=== PATIENT | male | born 1960 | race African-American/Black ===

== ENCOUNTER 2017-08-02 09:22 | Emergency (ER) | payer MEDICAID ==
[~2017-08-02] VITALS: Ht 182.9 cm; Wt 82.0 kg
[~2017-08-02 09:22] MED LIST: DOCU-272 PO; PANT40TA4 PO; SEVE800T8 PO; TAMS0.4C31 PO
[2017-08-02] MEDS ORDERED: FLUORESCEIN SODIUM 1MG/STRIP OP ONE (10:15)
[2017-08-02] MEDS ORDERED: TETRACAINE 0.5% OPHTH DROPS 4ML OP ONE (10:15)
[2017-08-02 14:39] VITALS: BP 149/84
== END 2017-08-02 14:40 | disposition home or self-care (01) ==
LOC: ER 09:27
DX: S05.01XA Injury of conjunctiva and corneal abrasion without foreign body, right eye, initial encounter (principal); H10.9 Unspecified conjunctivitis; I12.0 Hypertensive chronic kidney disease with stage 5 chronic kidney disease or end stage renal disease; N18.6 End stage renal disease; Z99.2 Dependence on renal dialysis; F17.210 Nicotine dependence, cigarettes, uncomplicated; Z71.6 Tobacco abuse counseling; X58.XXXA Exposure to other specified factors, initial encounter; Y93.89 Activity, other specified; Y92.018 Other place in single-family (private) house as the place of occurrence of the external cause
CPT/HCPCS: 70486; 99284; 99406; Z7610

== ENCOUNTER 2019-08-21 19:05 | Inpatient (IN) | payer MEDICAID ==
[~2019-08-21] VITALS: Ht 182.9 cm; Wt 92.2 kg
[2019-08-21 21:10] LABS: CHLORIDE 97 mEq/L (98-107)
[2019-08-21 21:13] LABS: BASOPHILS % 0.8 % (0.0-2.0); EOSINOPHILS % 2.2 % (0.0-5.0); HEMATOCRIT. 25.9 % (42.0-52.0); HEMOGLOBIN. 8.7 g/dL (14.0-18.0); LYMPHOCYTES % 8.7 % (20.0-50.0); MEAN CORPUSCULAR HEMOGLOBIN 28.9 pg (28.0-32.0); MEAN CORPUSCULAR VOLUME 85.3 fL (80.0-94.0); MEAN PLATELET VOLUME 7.7 fl (7.4-10.4); MONOCYTES % 6.7 % (2.0-8.0); NEUTROPHILS % 81.6 % (40.0-76.0); PLATELET 266 x1000/uL (130-400); RED BLOOD CELL COUNT 3.03 mill/uL (4.7-6.1)
[2019-08-21 21:15] LABS: ETHANOL BLOOD < 10 mg/dL
[2019-08-21 22:46] LABS: INR 1.2; PARTIAL THROMBOPLASTIN TIME 32.8 sec (23.4-31.0); PROTHROMBIN TIME 13.1 sec (9.6-11.0)
[2019-08-22] MEDS ORDERED: ACETAMINOPHEN 325MG TABLET PO ONE
[2019-08-22] MEDS ORDERED: ACETAMINOPHEN 325MG TABLET ONE (00:07)
[2019-08-22 04:15] VITALS: BP 196/98
[2019-08-22] MEDS: HYDROCODONE/ACETAMINOPHEN 5/325MG TABLET PO PRN ×2 (05:21→20:17)
[2019-08-22] MEDS: CLONIDINE 0.1MG TABLET PO PRN ×3 (05:22→23:03)
[2019-08-22 08:30] VITALS: BP 175/99
[2019-08-22] MEDS: SEVELAMER CARBONATE 800 MG TABLET PO SCH ×3 (08:41→18:05)
[2019-08-22] MEDS: PANTOPRAZOLE 40MG DR TABLET PO SCH (08:41)
[2019-08-22] MEDS: DOCUSATE SODIUM 100MG CAPSULE PO SCH ×2 (08:42→16:42)
[2019-08-22] MEDS: TAMSULOSIN HCL 0.4MG SR CAPSULE PO SCH (08:43)
[2019-08-22 12:30] VITALS: BP 186/97
[2019-08-22 14:33] LABS: CREATINE KINASE MB FRACTION 2.9 ng/mL (0.5-3.6)
[2019-08-22 16:00] VITALS: BP 176/78
[2019-08-22 20:00] VITALS: BP 184/81
[2019-08-22 22:12] LABS: PHOSPHORUS 8.3 mg/dL (2.5-4.9)
[2019-08-22 22:58] LABS: CREATINE KINASE MB FRACTION 2.4 ng/mL (0.5-3.6)
[2019-08-22 22:59] VITALS: BP 187/86
[2019-08-23] VITALS: BP 195/99
[2019-08-23 08:00] VITALS: BP 161/99
[2019-08-23] MEDS: SEVELAMER CARBONATE 800 MG TABLET PO SCH ×3 (08:47→18:27)
[2019-08-23] MEDS: PANTOPRAZOLE 40MG DR TABLET PO SCH (08:48)
[2019-08-23] MEDS: FOLIC ACID/VITAMIN B COMP W-C TABLET PO SCH (08:48)
[2019-08-23] MEDS: DOCUSATE SODIUM 100MG CAPSULE PO SCH ×2 (08:48→17:00)
[2019-08-23] MEDS: TAMSULOSIN HCL 0.4MG SR CAPSULE PO SCH (08:48)
[2019-08-23] MEDS: CLONIDINE 0.1MG TABLET PO PRN ×2 (08:51→16:03)
[2019-08-23] MEDS: HYDROCODONE/ACETAMINOPHEN 5/325MG TABLET PO PRN ×2 (09:10→16:03)
[2019-08-23 12:00] VITALS: BP 156/85
[2019-08-23 16:00] VITALS: BP 165/87
[2019-08-23 18:18] LABS: BASOPHILS % 0.8 % (0.0-2.0); EOSINOPHILS % 4.3 % (0.0-5.0); HEMOGLOBIN. 7.3 g/dL (14.0-18.0); LYMPHOCYTES % 8.3 % (20.0-50.0); MEAN CORPUSCULAR HEMOGLOBIN 28.6 pg (28.0-32.0); MEAN CORPUSCULAR VOLUME 85.8 fL (80.0-94.0); MEAN PLATELET VOLUME 7.2 fl (7.4-10.4); NEUTROPHILS % 78.6 % (40.0-76.0); PLATELET 209 x1000/uL (130-400); RED BLOOD CELL COUNT 2.56 mill/uL (4.7-6.1); RED CELL DISTRIBUTION WIDTH 15.8 % (11.6-14.6)
[2019-08-23 18:55] LABS: HEPATITIS B SURFACE ANTIGEN NEGATIVE
[2019-08-23 19:25] LABS: HEPATITIS A AB IGM NEGATIVE (NEGATIVE)
[2019-08-23 20:00] VITALS: BP 177/99
[2019-08-24] VITALS (8 sets, daily range): BP systolic 158–185; BP diastolic 84–105
[2019-08-24] MEDS: HYDROCODONE/ACETAMINOPHEN 5/325MG TABLET PO PRN ×3 (02:18→21:08)
[2019-08-24] MEDS: TAMSULOSIN HCL 0.4MG SR CAPSULE PO SCH (09:16)
[2019-08-24] MEDS: DOCUSATE SODIUM 100MG CAPSULE PO SCH ×2 (09:17→18:32)
[2019-08-24] MEDS: PANTOPRAZOLE 40MG DR TABLET PO SCH (09:17)
[2019-08-24] MEDS: SEVELAMER CARBONATE 800 MG TABLET PO SCH ×3 (09:17→18:32)
[2019-08-24] MEDS: FOLIC ACID/VITAMIN B COMP W-C TABLET PO SCH (09:17)
[2019-08-24] MEDS: CLONIDINE 0.1MG TABLET PO PRN ×2 (11:46→17:50)
[2019-08-24 16:49] LABS: BASOPHILS % 0.7 % (0.0-2.0); LYMPHOCYTES % 7.7 % (20.0-50.0); MEAN CORPUSCULAR HEMOGLOBIN 28.6 pg (28.0-32.0); MEAN CORPUSCULAR VOLUME 85.9 fL (80.0-94.0); MEAN PLATELET VOLUME 7.2 fl (7.4-10.4); MONOCYTES % 7.1 % (2.0-8.0); NEUTROPHILS % 80.5 % (40.0-76.0); PLATELET 183 x1000/uL (130-400); RED BLOOD CELL COUNT 2.44 mill/uL (4.7-6.1); RED CELL DISTRIBUTION WIDTH 15.3 % (11.6-14.6)
[2019-08-24 17:05] LABS: HEMATOCRIT. 20.9 % (42.0-52.0)
[2019-08-24] MEDS: EPOETIN ALFA 10000UNITS/ML VIAL SUBCUT SCH (21:00)
[2019-08-25 08:00] VITALS: BP 188/95
[2019-08-25] MEDS: SEVELAMER CARBONATE 800 MG TABLET PO SCH ×2 (09:12→14:09)
[2019-08-25] MEDS: PANTOPRAZOLE 40MG DR TABLET PO SCH (09:12)
[2019-08-25] MEDS: FOLIC ACID/VITAMIN B COMP W-C TABLET PO SCH (09:12)
[2019-08-25] MEDS: TAMSULOSIN HCL 0.4MG SR CAPSULE PO SCH (09:14)
[2019-08-25] MEDS: DOCUSATE SODIUM 100MG CAPSULE PO SCH ×2 (09:15→17:00)
[2019-08-25] MEDS: CLONIDINE 0.1MG TABLET PO PRN ×2 (09:16→23:56)
[2019-08-25] MEDS: HYDROCODONE/ACETAMINOPHEN 5/325MG TABLET PO PRN ×2 (09:22→21:18)
[2019-08-25] MEDS: ACETAMINOPHEN 325MG TABLET PO PRN (15:28)
[2019-08-25 16:00] VITALS: BP 134/78
[2019-08-25] MEDS: COCAINE 4% TOPICAL SOLN 4ML TOP NR ×2 (17:46→18:07)
[2019-08-25] MEDS: TRANEXAMIC ACID 1,000 MG/10 ML TP NR ×2 (17:56→18:07)
[2019-08-25] MEDS ORDERED: MORPHINE SULFATE 10 MG/ML CPJ IM NR (18:00)
[2019-08-25] MEDS: PHENYLEPHRINE HCL 0.5% 15ML NASAL SPRAY LEFTNSTRL SCH ×2 (18:07→22:50)
[2019-08-25] MEDS ORDERED: CEFAZOLIN 1000MG PREMIX 50 ML IV STA (18:13)
[2019-08-25] MEDS: DIPHENHYDRAMINE 25MG CAPSULE PO PRN (22:50)
[2019-08-25 23:30] LABS: INR 1.2; PROTHROMBIN TIME 12.8 sec (9.6-11.0)
[2019-08-25 23:51] LABS: BASOPHILS % 0.9 % (0.0-2.0); EOSINOPHILS % 4.6 % (0.0-5.0); LYMPHOCYTES % 10.3 % (20.0-50.0); MEAN CORPUSCULAR HEMOGLOBIN 28.9 pg (28.0-32.0); MEAN CORPUSCULAR VOLUME 85.1 fL (80.0-94.0); MEAN PLATELET VOLUME 7.2 fl (7.4-10.4); MONOCYTES % 7.1 % (2.0-8.0); NEUTROPHILS % 77.1 % (40.0-76.0); PLATELET 206 x1000/uL (130-400); RED BLOOD CELL COUNT 2.24 mill/uL (4.7-6.1); RED CELL DISTRIBUTION WIDTH 15.3 % (11.6-14.6)
[2019-08-26] VITALS: BP 190/101
[2019-08-26] LABS: HEMATOCRIT. 19.1 % (42.0-52.0); HEMOGLOBIN. 6.5 g/dL (14.0-18.0)
[2019-08-26] MEDS: ACETAMINOPHEN 325MG TABLET PO PRN ×2 (00:07→14:35)
[2019-08-26] MEDS ORDERED: ACETAMINOPHEN 325MG TABLET PO SCH (00:15)
[2019-08-26 00:30] VITALS: BP 140/76
[2019-08-26] MEDS: PHENYLEPHRINE HCL 0.5% 15ML NASAL SPRAY LEFTNSTRL SCH ×6 (03:39→22:58)
[2019-08-26 06:56] LABS: BASOPHILS % 0.9 % (0.0-2.0); EOSINOPHILS % 4.7 % (0.0-5.0); LYMPHOCYTES % 9.6 % (20.0-50.0); MEAN CORPUSCULAR HEMOGLOBIN 28.9 pg (28.0-32.0); MEAN CORPUSCULAR VOLUME 84.7 fL (80.0-94.0); MEAN PLATELET VOLUME 7.1 fl (7.4-10.4); MONOCYTES % 7.4 % (2.0-8.0); NEUTROPHILS % 77.4 % (40.0-76.0); PLATELET 194 x1000/uL (130-400); RED BLOOD CELL COUNT 1.89 mill/uL (4.7-6.1); RED CELL DISTRIBUTION WIDTH 15.2 % (11.6-14.6)
[2019-08-26 07:05] LABS: HEMOGLOBIN. 5.5 g/dL (14.0-18.0)
[2019-08-26] MEDS: PANTOPRAZOLE 40MG DR TABLET PO SCH (07:40)
[2019-08-26] MEDS: SEVELAMER CARBONATE 800 MG TABLET PO SCH ×3 (08:00→17:31)
[2019-08-26] MEDS: DOCUSATE SODIUM 100MG CAPSULE PO SCH ×2 (08:00→16:13)
[2019-08-26] MEDS: FOLIC ACID/VITAMIN B COMP W-C TABLET PO SCH (08:00)
[2019-08-26] MEDS: TAMSULOSIN HCL 0.4MG SR CAPSULE PO SCH (08:00)
[2019-08-26] MEDS ORDERED: SODIUM BICARBONATE 8.4% 1 MEQ/ML 50ML SYR IV STA (11:09)
[2019-08-26] MEDS ORDERED: DEXTROSE 50% WATER 50ML SYRINGE IV STA (11:09)
[2019-08-26] MEDS ORDERED: SODIUM POLYSTYRENE SULFONATE 15 G/60 ML BOT PO SCH (12:00)
[2019-08-26] MEDS ORDERED: INSULIN REGULAR (HUMULIN R) UD 100 UNITS/ML SYR IV SCH (12:00)
[2019-08-26 18:46] LABS: HEMATOCRIT 12.6 % (42.0-52.0); HEMOGLOBIN 4.3 g/dL (14.0-18.0)
[2019-08-26 20:00] VITALS: BP 145/78
[2019-08-26] MEDS: EPOETIN ALFA 10000UNITS/ML VIAL SUBCUT SCH (20:37)
[2019-08-26] MEDS: HYDROCODONE/ACETAMINOPHEN 5/325MG TABLET PO PRN (20:43)
[2019-08-26 21:57] VITALS: BP 120/79
[2019-08-26 22:15] VITALS: BP 157/82
[2019-08-26 23:15] VITALS: BP 149/81
[2019-08-27] VITALS (17 sets, daily range): BP systolic 140–166; BP diastolic 59–111
[2019-08-27] MEDS: PHENYLEPHRINE HCL 0.5% 15ML NASAL SPRAY LEFTNSTRL SCH ×6 (06:00→23:20)
[2019-08-27] MEDS: CLONIDINE 0.1MG TABLET PO PRN (08:23)
[2019-08-27] MEDS: SEVELAMER CARBONATE 800 MG TABLET PO SCH ×3 (08:23→18:19)
[2019-08-27] MEDS: PANTOPRAZOLE 40MG DR TABLET PO SCH (08:23)
[2019-08-27] MEDS: FOLIC ACID/VITAMIN B COMP W-C TABLET PO SCH (08:23)
[2019-08-27] MEDS: DOCUSATE SODIUM 100MG CAPSULE PO SCH ×2 (08:24→17:45)
[2019-08-27] MEDS: TAMSULOSIN HCL 0.4MG SR CAPSULE PO SCH (08:24)
[2019-08-27] MEDS: ACETAMINOPHEN 325MG TABLET PO PRN ×2 (08:26→17:46)
[2019-08-27 17:07] LABS: BASOPHILS % 0.7 % (0.0-2.0); EOSINOPHILS % 3.2 % (0.0-5.0); LYMPHOCYTES % 10.7 % (20.0-50.0); MEAN CORPUSCULAR HEMOGLOBIN 29.3 pg (28.0-32.0); MEAN CORPUSCULAR VOLUME 84.4 fL (80.0-94.0); MEAN PLATELET VOLUME 7.3 fl (7.4-10.4); MONOCYTES % 8.2 % (2.0-8.0); NEUTROPHILS % 77.2 % (40.0-76.0); PLATELET 153 x1000/uL (130-400); RED BLOOD CELL COUNT 1.77 mill/uL (4.7-6.1); RED CELL DISTRIBUTION WIDTH 14.8 % (11.6-14.6)
[2019-08-27 17:17] LABS: HEMOGLOBIN. 5.2 g/dL (14.0-18.0)
[2019-08-27 17:18] LABS: HEMATOCRIT. 14.9 % (42.0-52.0)
[2019-08-27] MEDS: HYDROCODONE/ACETAMINOPHEN 5/325MG TABLET PO PRN (21:50)
[2019-08-28] VITALS (14 sets, daily range): BP systolic 136–190; BP diastolic 81–110
[2019-08-28] MEDS: CLONIDINE 0.1MG TABLET PO PRN ×3 (02:41→17:06)
[2019-08-28] MEDS: ACETAMINOPHEN 325MG TABLET PO PRN ×3 (02:50→23:00)
[2019-08-28] MEDS: PHENYLEPHRINE HCL 0.5% 15ML NASAL SPRAY LEFTNSTRL SCH ×6 (02:50→23:00)
[2019-08-28 07:43] LABS: BASOPHILS % 0.7 % (0.0-2.0); EOSINOPHILS % 3.7 % (0.0-5.0); LYMPHOCYTES % 7.5 % (20.0-50.0); MEAN CORPUSCULAR HEMOGLOBIN 29.6 pg (28.0-32.0); MEAN CORPUSCULAR VOLUME 84.4 fL (80.0-94.0); MEAN PLATELET VOLUME 7.4 fl (7.4-10.4); MONOCYTES % 7.2 % (2.0-8.0); NEUTROPHILS % 80.9 % (40.0-76.0); PLATELET 137 x1000/uL (130-400); RED BLOOD CELL COUNT 2.37 mill/uL (4.7-6.1); RED CELL DISTRIBUTION WIDTH 14.9 % (11.6-14.6)
[2019-08-28] MEDS: FOLIC ACID/VITAMIN B COMP W-C TABLET PO SCH (08:11)
[2019-08-28] MEDS: PANTOPRAZOLE 40MG DR TABLET PO SCH (08:11)
[2019-08-28] MEDS: SEVELAMER CARBONATE 800 MG TABLET PO SCH ×3 (08:11→17:11)
[2019-08-28] MEDS: TAMSULOSIN HCL 0.4MG SR CAPSULE PO SCH (08:11)
[2019-08-28] MEDS: DOCUSATE SODIUM 100MG CAPSULE PO SCH ×2 (08:11→16:31)
[2019-08-28] MEDS: AMLODIPINE 5MG TABLET PO SCH (15:24)
[2019-08-28] MEDS: HYDROCODONE/ACETAMINOPHEN 5/325MG TABLET PO PRN (17:08)
[2019-08-29] VITALS: BP 175/74
[2019-08-29] MEDS: PHENYLEPHRINE HCL 0.5% 15ML NASAL SPRAY LEFTNSTRL SCH ×6 (03:04→22:01)
[2019-08-29 04:00] VITALS: BP 157/97
[2019-08-29 07:01] LABS: MEAN CORPUSCULAR HEMOGLOBIN 29.8 pg (28.0-32.0); MEAN CORPUSCULAR VOLUME 84.8 fL (80.0-94.0); MEAN PLATELET VOLUME 7.4 fl (7.4-10.4); PLATELET 134 x1000/uL (130-400); RED BLOOD CELL COUNT 2.16 mill/uL (4.7-6.1); RED CELL DISTRIBUTION WIDTH 14.5 % (11.6-14.6)
[2019-08-29 07:06] LABS: HEMOGLOBIN. 6.4 g/dL (14.0-18.0)
[2019-08-29 07:07] LABS: HEMATOCRIT. 18.3 % (42.0-52.0)
[2019-08-29 08:00] VITALS: BP 188/100
[2019-08-29] MEDS: FOLIC ACID/VITAMIN B COMP W-C TABLET PO SCH (08:36)
[2019-08-29] MEDS: TAMSULOSIN HCL 0.4MG SR CAPSULE PO SCH (08:36)
[2019-08-29] MEDS: SEVELAMER CARBONATE 800 MG TABLET PO SCH ×3 (08:36→17:50)
[2019-08-29] MEDS: DOCUSATE SODIUM 100MG CAPSULE PO SCH ×2 (08:36→17:50)
[2019-08-29] MEDS: PANTOPRAZOLE 40MG DR TABLET PO SCH (08:36)
[2019-08-29] MEDS: ACETAMINOPHEN 325MG TABLET PO PRN ×3 (08:37→21:30)
[2019-08-29] MEDS: AMLODIPINE 5MG TABLET PO SCH (10:23)
[2019-08-29 12:00] VITALS: BP 188/97
[2019-08-29] MEDS: FERROUS SULFATE 325MG TABLET PO SCH ×2 (12:30→17:50)
[2019-08-29 13:23] LABS: PLATELET ESTIMATE NORMAL
[2019-08-29 16:00] VITALS: BP 173/98
[2019-08-29] MEDS: CLONIDINE 0.1MG TABLET PO PRN (18:36)
[2019-08-29 20:00] VITALS: BP 136/78
[2019-08-29] MEDS: EPOETIN ALFA 10000UNITS/ML VIAL SUBCUT SCH (21:31)
[2019-08-29] MEDS: DIPHENHYDRAMINE 25MG CAPSULE PO PRN (22:02)
[2019-08-30] MEDS: PHENYLEPHRINE HCL 0.5% 15ML NASAL SPRAY LEFTNSTRL SCH ×7 (03:00→23:00)
[2019-08-30 08:00] VITALS: BP 187/89
[2019-08-30] MEDS: SEVELAMER CARBONATE 800 MG TABLET PO SCH ×3 (08:13→18:01)
[2019-08-30] MEDS: TAMSULOSIN HCL 0.4MG SR CAPSULE PO SCH (08:14)
[2019-08-30] MEDS: FOLIC ACID/VITAMIN B COMP W-C TABLET PO SCH (08:14)
[2019-08-30] MEDS: PANTOPRAZOLE 40MG DR TABLET PO SCH (08:14)
[2019-08-30] MEDS: FERROUS SULFATE 325MG TABLET PO SCH ×3 (08:14→18:01)
[2019-08-30] MEDS: AMLODIPINE 5MG TABLET PO SCH (08:14)
[2019-08-30] MEDS: DOCUSATE SODIUM 100MG CAPSULE PO SCH ×2 (08:14→17:59)
[2019-08-30] MEDS: ACETAMINOPHEN 325MG TABLET PO PRN ×2 (08:15→21:06)
[2019-08-30 09:47] LABS: HEMOGLOBIN. 7.6 g/dL (14.0-18.0); MEAN CORPUSCULAR HEMOGLOBIN 29.7 pg (28.0-32.0); MEAN CORPUSCULAR VOLUME 86.2 fL (80.0-94.0); MEAN PLATELET VOLUME 7.2 fl (7.4-10.4); PLATELET 169 x1000/uL (130-400); RED BLOOD CELL COUNT 2.55 mill/uL (4.7-6.1); RED CELL DISTRIBUTION WIDTH 14.4 % (11.6-14.6)
[2019-08-30 11:52] LABS: PLATELET ESTIMATE NORMAL
[2019-08-30 12:00] VITALS: BP 120/57
[2019-08-30] MEDS: CLONIDINE 0.1MG TABLET PO PRN (13:27)
[2019-08-30 16:00] VITALS: BP 169/99
[2019-08-30] MEDS: DIPHENHYDRAMINE 25MG CAPSULE PO PRN (21:06)
[2019-08-30] MEDS: LOSARTAN POTASSIUM 100 MG TABLET PO SCH (21:15)
[2019-08-30 21:19] VITALS: BP 178/102
[2019-08-31] MEDS: PHENYLEPHRINE HCL 0.5% 15ML NASAL SPRAY LEFTNSTRL SCH ×2 (03:00→06:37)
[2019-08-31] MEDS: ACETAMINOPHEN 325MG TABLET PO PRN (03:41)
[2019-08-31] MEDS: PANTOPRAZOLE 40MG DR TABLET PO SCH (06:37)
[2019-08-31] MEDS: HYDROCODONE/ACETAMINOPHEN 5/325MG TABLET PO PRN (06:51)
[2019-08-31 08:00] VITALS: BP 198/104
[2019-08-31] MEDS: SEVELAMER CARBONATE 800 MG TABLET PO SCH (08:14)
[2019-08-31] MEDS: TAMSULOSIN HCL 0.4MG SR CAPSULE PO SCH (08:14)
[2019-08-31] MEDS: DOCUSATE SODIUM 100MG CAPSULE PO SCH (08:14)
[2019-08-31] MEDS: FERROUS SULFATE 325MG TABLET PO SCH (08:14)
[2019-08-31] MEDS: FOLIC ACID/VITAMIN B COMP W-C TABLET PO SCH (08:14)
[2019-08-31] MEDS: LOSARTAN POTASSIUM 100 MG TABLET PO SCH (08:14)
[2019-08-31] MEDS: CLONIDINE 0.1MG TABLET PO PRN (08:15)
[2019-08-31] MEDS: AMLODIPINE 5MG TABLET PO SCH (08:15)
[2019-09-01 08:07] LABS: IMMUNOGLOBULIN A 158 mg/dL (90-386); IMMUNOGLOBULIN G 1415 mg/dL (603-1613); IMMUNOGLOBULIN M 70 mg/dL (20-172)
== END 2019-08-31 10:15 | disposition left against medical advice (07) | DRG 425 ==
LOC: ER 19:05 → 7WST 23:58 → EDBEDREQ 08-22 00:08 → ENRESERV 08-22 03:33
PROVIDERS: ADMIT Internal Medicine; ATTEND Internal Medicine
PROC: 5A1D70Z Performance of Urinary Filtration, Intermittent, Less than 6 Hours Per Day (ICD-10-PCS; principal; 2019-08-22)
PROC: 5A1D70Z Performance of Urinary Filtration, Intermittent, Less than 6 Hours Per Day (ICD-10-PCS; 2019-08-24)
PROC: 2Y41X5Z Packing of Nasal Region using Packing Material (ICD-10-PCS; 2019-08-25)
PROC: 5A1D70Z Performance of Urinary Filtration, Intermittent, Less than 6 Hours Per Day (ICD-10-PCS; 2019-08-26)
PROC: 30233N1 Transfusion of Nonautologous Red Blood Cells into Peripheral Vein, Percutaneous Approach (ICD-10-PCS; 2019-08-27)
PROC: 5A1D70Z Performance of Urinary Filtration, Intermittent, Less than 6 Hours Per Day (ICD-10-PCS; 2019-08-29)
PROC: 5A1D70Z Performance of Urinary Filtration, Intermittent, Less than 6 Hours Per Day (ICD-10-PCS; 2019-08-31)
DX: E87.70 Fluid overload, unspecified (principal); J96.00 Acute respiratory failure, unspecified whether with hypoxia or hypercapnia; E83.39 Other disorders of phosphorus metabolism; E87.5 Hyperkalemia; D50.0 Iron deficiency anemia secondary to blood loss (chronic); F17.200 Nicotine dependence, unspecified, uncomplicated; I12.0 Hypertensive chronic kidney disease with stage 5 chronic kidney disease or end stage renal disease; N18.6 End stage renal disease; Z53.29 Procedure and treatment not carried out because of patient's decision for other reasons; I45.10 Unspecified right bundle-branch block; R04.0 Epistaxis; Z99.2 Dependence on renal dialysis; Z59.0 Homelessness; Z91.15 Patient's noncompliance with renal dialysis; Z79.899 Other long term (current) drug therapy
CPT/HCPCS: 36415; 71045; 80048; 80053; 80061; 80076; 80320; 82270; 82550; 82553; 82728; 82784; 82962; 83010; 83540; 83550; 83605; 83615; 83735; 83880; 84100; 84145; 84443; 84484; 85014; 85018; 85025; 85044; 86334; 86705; 86706; 86709; 86803; 86850; 86880; 86900; 86920; 87340; 87804; 93005; 93970; 99285; J0690; J0885; J1815; J2270; J3490; P9016; Q0163; G0480

== ENCOUNTER 2019-11-16 18:39 | Inpatient (IN) | payer MEDICAID ==
[~2019-11-16] VITALS: Ht 182.9 cm; Wt 102.7 kg
[2019-11-16 20:21] LABS: CHLORIDE 104 mEq/L (98-107)
[2019-11-16 20:22] LABS: BASOPHILS % 1.4 % (0.0-2.0); EOSINOPHILS % 4.4 % (0.0-5.0); HEMOGLOBIN. 7.2 g/dL (14.0-18.0); LYMPHOCYTES % 8.7 % (20.0-50.0); MEAN CORPUSCULAR HEMOGLOBIN 31.1 pg (28.0-32.0); MEAN CORPUSCULAR VOLUME 90.3 fL (80.0-94.0); MONOCYTES % 7.6 % (2.0-8.0); NEUTROPHILS % 77.9 % (40.0-76.0); PLATELET 369 x1000/uL (130-400)
[2019-11-16 20:25] LABS: INR 1.1; PROTHROMBIN TIME 11.9 sec (9.6-11.0)
[2019-11-16 20:27] LABS: HEMATOCRIT. 20.8 % (42.0-52.0)
[2019-11-16] MEDS ORDERED: DEXTROSE 50% WATER 50ML SYRINGE IV ONE (21:30)
[2019-11-16] MEDS ORDERED: INSULIN REGULAR (HUMULIN R) 300UNITS/3ML IV ONE (21:30)
[2019-11-16] MEDS ORDERED: HYDRALAZINE 20MG/ML VIAL IV ONE (21:30)
[2019-11-16] MEDS ORDERED: SODIUM BICARBONATE 8.4% 1 MEQ/ML 50ML SYR IV ONE (21:30)
[2019-11-16] MEDS ORDERED: CALCIUM GLUCONATE 1,000 MG in DEXT 5% WATER 100 ML IV ONE (21:30)
[2019-11-16] MEDS ORDERED: ACETAMINOPHEN WITH CODEINE 300/30MG TABLET PO ONE (23:00)
[2019-11-16] MEDS ORDERED: HYDRALAZINE 20MG/ML VIAL IV PRN (23:45)
[2019-11-16] MEDS ORDERED: DOCUSATE SODIUM 100MG CAPSULE PO PRN (23:45)
[2019-11-16] MEDS ORDERED: IPRATROPIUM/ALBUTEROL 0.5-3(2.5)MG/3ML NEB NEB PRN (23:45)
[2019-11-16] MEDS ORDERED: SODIUM POLYSTYRENE SULFONATE 15 G/60 ML BOT PO SCH (23:45)
[2019-11-17] VITALS (11 sets, daily range): BP systolic 149–189; BP diastolic 90–131
[2019-11-17] MEDS ORDERED: HYDRALAZINE 10 MG in DEXTROSE 5% WATER 50 ML IV PRN (03:00)
[2019-11-17] MEDS: CLONIDINE 0.1MG TABLET PO PRN ×2 (03:32→12:22)
[2019-11-17] MEDS: ONDANSETRON HCL 4MG/2ML INJ IV PRN (03:56)
[2019-11-17] MEDS: HYDROCODONE/ACETAMINOPHEN 5/325MG TABLET PO PRN (03:56)
[2019-11-17 09:31] LABS: BASOPHILS % 1.2 % (0.0-2.0); EOSINOPHILS % 4.6 % (0.0-5.0); LYMPHOCYTES % 7.8 % (20.0-50.0); MEAN CORPUSCULAR HEMOGLOBIN 30.2 pg (28.0-32.0); MEAN CORPUSCULAR VOLUME 89.9 fL (80.0-94.0); MEAN PLATELET VOLUME 7.1 fl (7.4-10.4); MONOCYTES % 6.6 % (2.0-8.0); NEUTROPHILS % 79.8 % (40.0-76.0); PLATELET 352 x1000/uL (130-400); RED BLOOD CELL COUNT 2.25 mill/uL (4.7-6.1); RED CELL DISTRIBUTION WIDTH 14.6 % (11.6-14.6)
[2019-11-17 09:38] LABS: HEMATOCRIT. 20.2 % (42.0-52.0); HEMOGLOBIN. 6.8 g/dL (14.0-18.0)
[2019-11-17 09:50] LABS: CREATINE KINASE MB FRACTION 2.7 ng/mL (0.5-3.6)
[2019-11-17] MEDS: ACETAMINOPHEN 325MG TABLET PO PRN ×3 (12:16→20:17)
[2019-11-17] MEDS ORDERED: HYDRALAZINE 20MG/ML VIAL ONE (12:16)
[2019-11-17] MEDS ORDERED: HYDRALAZINE 20MG/ML VIAL IV PRN (15:00)
[2019-11-17 17:08] LABS: CREATINE KINASE MB FRACTION 2.7 ng/mL (0.5-3.6)
[2019-11-17 17:30] LABS: HEPATITIS B SURFACE AB 24.6 mIU/mL
[2019-11-17 17:41] LABS: HEPATITIS B SURFACE ANTIGEN NEGATIVE
[2019-11-17 18:11] LABS: HEPATITIS A AB IGM NEGATIVE (NEGATIVE)
[2019-11-18] MEDS: ACETAMINOPHEN 325MG TABLET PO PRN ×3 (07:01→20:49)
[2019-11-18] MEDS: CLONIDINE 0.1MG TABLET PO PRN ×2 (07:03→16:00)
[2019-11-18 08:00] VITALS: BP 173/114
[2019-11-18 12:00] VITALS: BP 154/118
[2019-11-18] MEDS: HYDRALAZINE HCL 50MG TABLET PO SCH ×2 (12:36→21:00)
[2019-11-18 12:54] LABS: HEMATOCRIT 21.9 % (42.0-52.0); HEMOGLOBIN 7.6 g/dL (14.0-18.0)
[2019-11-18 15:39] VITALS: BP 168/110
[2019-11-18] MEDS: HYDROCODONE/ACETAMINOPHEN 5/325MG TABLET PO PRN (16:01)
[2019-11-18] MEDS ORDERED: DEXTROSE 50% WATER 50ML SYRINGE IV NR (16:45)
[2019-11-18] MEDS ORDERED: SODIUM BICARBONATE 8.4% 1 MEQ/ML 50ML SYR IV NR (16:45)
[2019-11-18] MEDS ORDERED: INSULIN REGULAR (HUMULIN R) UD 100 UNITS/ML SYR IV NR (18:00)
[2019-11-19] MEDS: ACETAMINOPHEN 325MG TABLET PO PRN ×3 (03:08→20:26)
[2019-11-19] MEDS: HYDRALAZINE HCL 50MG TABLET PO SCH ×2 (09:00→20:43)
[2019-11-19 09:38] LABS: HEMATOCRIT. 22.1 % (42.0-52.0); HEMOGLOBIN. 7.2 g/dL (14.0-18.0); MEAN CORPUSCULAR HEMOGLOBIN 30.7 pg (28.0-32.0); MEAN CORPUSCULAR VOLUME 94.2 fL (80.0-94.0); MEAN PLATELET VOLUME 6.9 fl (7.4-10.4); PLATELET 240 x1000/uL (130-400); RED BLOOD CELL COUNT 2.35 mill/uL (4.7-6.1); RED CELL DISTRIBUTION WIDTH 15.2 % (11.6-14.6)
[2019-11-19 10:44] LABS: PLATELET ESTIMATE NORMAL
[2019-11-19 20:16] VITALS: BP 183/125
[2019-11-20] MEDS: HYDROCODONE/ACETAMINOPHEN 5/325MG TABLET PO PRN ×2 (01:46→19:58)
[2019-11-20] MEDS: HYDRALAZINE HCL 50MG TABLET PO SCH ×2 (09:52→19:57)
[2019-11-20] MEDS: CLONIDINE 0.1MG TABLET PO PRN (09:52)
[2019-11-20] MEDS: ACETAMINOPHEN 325MG TABLET PO PRN (09:53)
[2019-11-20 11:52] VITALS: BP 173/98
[2019-11-20] MEDS: NIFEDIPINE XL 60MG TAB PO SCH (13:15)
[2019-11-20 20:45] VITALS: BP 194/82
[2019-11-20 21:00] LABS: MEAN CORPUSCULAR VOLUME 90.1 fL (80.0-94.0); MEAN PLATELET VOLUME 6.7 fl (7.4-10.4); PLATELET 257 x1000/uL (130-400); RED BLOOD CELL COUNT 2.25 mill/uL (4.7-6.1); RED CELL DISTRIBUTION WIDTH 14.9 % (11.6-14.6)
[2019-11-20 21:10] LABS: HEMATOCRIT. 20.3 % (42.0-52.0); HEMOGLOBIN. 6.7 g/dL (14.0-18.0)
[2019-11-21] VITALS (7 sets, daily range): BP systolic 153–187; BP diastolic 76–112
[2019-11-21] MEDS: HYDROCODONE/ACETAMINOPHEN 5/325MG TABLET PO PRN ×2 (03:42→19:46)
[2019-11-21] MEDS: CLONIDINE 0.1MG TABLET PO PRN (04:59)
[2019-11-21 08:09] LABS: PLATELET ESTIMATE NORMAL
[2019-11-21] MEDS: HYDRALAZINE HCL 50MG TABLET PO SCH ×2 (09:09→19:46)
[2019-11-21] MEDS: NIFEDIPINE XL 60MG TAB PO SCH (09:09)
[2019-11-21] MEDS ORDERED: NIFEDIPINE XL 30MG TAB PO NR (17:00)
[2019-11-21] MEDS: SODIUM POLYSTYRENE SULFONATE 15 G/60 ML BOT PO SCH ×2 (22:35→22:41)
[2019-11-21] MEDS: ACETAMINOPHEN 325MG TABLET PO PRN (23:12)
[2019-11-22] VITALS: BP 180/91
[2019-11-22 04:00] VITALS: BP 200/110
[2019-11-22] MEDS: CLONIDINE 0.1MG TABLET PO PRN (04:18)
[2019-11-22] MEDS: ACETAMINOPHEN 325MG TABLET PO PRN ×3 (04:43→20:52)
[2019-11-22 06:12] LABS: HEMATOCRIT. 21.2 % (42.0-52.0); HEMOGLOBIN. 7.3 g/dL (14.0-18.0); MEAN CORPUSCULAR HEMOGLOBIN 30.7 pg (28.0-32.0); MEAN CORPUSCULAR VOLUME 89.5 fL (80.0-94.0); MEAN PLATELET VOLUME 6.7 fl (7.4-10.4); PLATELET 220 x1000/uL (130-400); RED BLOOD CELL COUNT 2.37 mill/uL (4.7-6.1); RED CELL DISTRIBUTION WIDTH 14.6 % (11.6-14.6)
[2019-11-22] MEDS ORDERED: INSULIN REGULAR (HUMULIN R) UD 100 UNITS/ML SYR IV STA (07:57)
[2019-11-22] MEDS ORDERED: SODIUM BICARBONATE 8.4% 1 MEQ/ML 50ML SYR IV STA (07:57)
[2019-11-22] MEDS ORDERED: DEXTROSE 50% WATER 50ML SYRINGE IV STA (07:57)
[2019-11-22] MEDS: NIFEDIPINE XL 90MG TAB PO SCH (09:00)
[2019-11-22] MEDS: HYDROCODONE/ACETAMINOPHEN 5/325MG TABLET PO PRN (09:19)
[2019-11-22 09:22] VITALS: BP 190/107
[2019-11-22] MEDS: HYDRALAZINE HCL 50MG TABLET PO SCH ×2 (09:44→20:51)
[2019-11-22 20:42] VITALS: BP 202/110
[2019-11-22 21:44] LABS: PLATELET ESTIMATE NORMAL
[2019-11-23] MEDS: HYDROCODONE/ACETAMINOPHEN 5/325MG TABLET PO PRN ×4 (01:22→21:16)
[2019-11-23 04:00] VITALS: BP 200/100
[2019-11-23] MEDS: CLONIDINE 0.1MG TABLET PO PRN ×2 (05:18→13:52)
[2019-11-23 08:00] VITALS: BP 189/109
[2019-11-23] MEDS: HYDRALAZINE HCL 50MG TABLET PO SCH (09:33)
[2019-11-23] MEDS: NIFEDIPINE XL 90MG TAB PO SCH (09:33)
[2019-11-23 12:00] VITALS: BP 177/107
[2019-11-23] MEDS: ACETAMINOPHEN 325MG TABLET PO PRN ×2 (13:59→20:22)
[2019-11-23 16:00] VITALS: BP 188/106
[2019-11-23] MEDS ORDERED: HYDRALAZINE HCL 100MG TABLET PO NR (17:30)
[2019-11-23] MEDS: HYDRALAZINE HCL 100MG TABLET PO SCH (21:16)
[2019-11-24 00:50] VITALS: BP 148/90
[2019-11-24 08:00] VITALS: BP 150/92
[2019-11-24] MEDS: NIFEDIPINE XL 90MG TAB PO SCH (08:42)
[2019-11-24] MEDS: HYDRALAZINE HCL 100MG TABLET PO SCH ×3 (08:42→17:00)
[2019-11-24] MEDS: ACETAMINOPHEN 325MG TABLET PO PRN ×2 (08:46→18:13)
[2019-11-24 12:00] VITALS: BP 141/95
[2019-11-24] MEDS: HYDROCODONE/ACETAMINOPHEN 5/325MG TABLET PO PRN ×2 (19:50→23:54)
[2019-11-24] MEDS: CALCIUM CARBONATE 500MG TABLET CHEW PO PRN (20:02)
[2019-11-24 20:45] VITALS: BP 149/86
[2019-11-24] MEDS: CLONIDINE 0.1MG TABLET PO PRN (23:53)
[2019-11-25] VITALS: BP 158/105
[2019-11-25] MEDS: HYDRALAZINE HCL 100MG TABLET PO SCH ×3 (08:27→17:51)
[2019-11-25] MEDS: NIFEDIPINE XL 90MG TAB PO SCH (08:28)
[2019-11-25] MEDS: ACETAMINOPHEN 325MG TABLET PO PRN ×2 (08:33→17:52)
[2019-11-25] MEDS: CALCIUM CARBONATE 500MG TABLET CHEW PO PRN ×2 (10:17→18:17)
[2019-11-25 12:00] VITALS: BP 156/97
[2019-11-25 17:00] VITALS: BP 159/98
[2019-11-25 20:00] VITALS: BP 159/85
[2019-11-25] MEDS: HYDROCODONE/ACETAMINOPHEN 5/325MG TABLET PO PRN (22:36)
[2019-11-26] VITALS: BP 161/89
[2019-11-26] MEDS: ACETAMINOPHEN 325MG TABLET PO PRN ×2 (00:05→14:21)
[2019-11-26 04:00] VITALS: BP 154/103
[2019-11-26] MEDS: CLONIDINE 0.1MG TABLET PO PRN ×2 (04:30→17:59)
[2019-11-26] MEDS: HYDROCODONE/ACETAMINOPHEN 5/325MG TABLET PO PRN ×3 (05:53→21:24)
[2019-11-26 07:25] LABS: HEMOGLOBIN. 7.1 g/dL (14.0-18.0); MEAN CORPUSCULAR VOLUME 87.6 fL (80.0-94.0); MEAN PLATELET VOLUME 7.2 fl (7.4-10.4); PLATELET 242 x1000/uL (130-400); RED BLOOD CELL COUNT 2.36 mill/uL (4.7-6.1); RED CELL DISTRIBUTION WIDTH 14.4 % (11.6-14.6)
[2019-11-26 08:00] VITALS: BP 158/93
[2019-11-26 08:06] LABS: HEMATOCRIT. 20.7 % (42.0-52.0)
[2019-11-26] MEDS ORDERED: DEXTROSE 50% WATER 50ML SYRINGE IV STA (08:14)
[2019-11-26] MEDS ORDERED: INSULIN REGULAR (HUMULIN R) UD 100 UNITS/ML SYR IV STA (08:14)
[2019-11-26] MEDS ORDERED: SODIUM BICARBONATE 8.4% 1 MEQ/ML 50ML SYR IV STA (08:14)
[2019-11-26] MEDS ORDERED: SODIUM POLYSTYRENE SULFONATE 15 G/60 ML BOT PO STA (08:14)
[2019-11-26] MEDS ORDERED: CALCIUM GLUCONATE 1,000 MG in DEXT 5% WATER 90 ML IV STA (08:14)
[2019-11-26] MEDS: HYDRALAZINE HCL 100MG TABLET PO SCH ×3 (09:00→17:59)
[2019-11-26 12:00] VITALS: BP 192/110
[2019-11-26 14:00] LABS: PLATELET ESTIMATE NORMAL
[2019-11-26] MEDS: NIFEDIPINE XL 90MG TAB PO SCH (14:23)
[2019-11-26 16:00] VITALS: BP 187/128
[2019-11-26 20:00] VITALS: BP 180/112
[2019-11-27] VITALS (8 sets, daily range): BP systolic 156–188; BP diastolic 91–105
[2019-11-27] MEDS: CLONIDINE 0.1MG TABLET PO PRN ×3 (00:41→22:25)
[2019-11-27] MEDS: HYDROCODONE/ACETAMINOPHEN 5/325MG TABLET PO PRN (06:22)
[2019-11-27] MEDS: HYDRALAZINE HCL 100MG TABLET PO SCH ×3 (09:00→17:19)
[2019-11-27] MEDS: NIFEDIPINE XL 90MG TAB PO SCH (09:00)
[2019-11-27] MEDS: ACETAMINOPHEN 325MG TABLET PO PRN ×2 (10:15→17:39)
[2019-11-27 19:08] LABS: HEMATOCRIT 21.9 % (42.0-52.0); HEMOGLOBIN 7.6 g/dL (14.0-18.0)
[2019-11-27 19:15] LABS: INR 1.1
[2019-11-27] MEDS ORDERED: SODIUM BICARBONATE 8.4% 1 MEQ/ML 50ML SYR IV NR (20:47)
[2019-11-27] MEDS ORDERED: DEXTROSE 50% WATER 50ML SYRINGE IV NR (20:47)
[2019-11-27] MEDS ORDERED: SODIUM POLYSTYRENE SULFONATE 15 G/60 ML BOT PO NR (20:48)
[2019-11-27] MEDS: CALCIUM CARBONATE 500MG TABLET CHEW PO PRN (20:51)
[2019-11-27] MEDS ORDERED: INSULIN REGULAR (HUMULIN R) UD 100 UNITS/ML SYR IV NR (21:30)
[2019-11-28] VITALS: BP 171/106
[2019-11-28] MEDS: ACETAMINOPHEN 325MG TABLET PO PRN ×4 (01:25→21:21)
[2019-11-28 06:50] VITALS: BP 196/102
[2019-11-28] MEDS: CLONIDINE 0.1MG TABLET PO PRN ×2 (06:56→21:21)
[2019-11-28] MEDS: CALCIUM CARBONATE 500MG TABLET CHEW PO PRN (06:56)
[2019-11-28] MEDS: NIFEDIPINE XL 90MG TAB PO SCH (08:47)
[2019-11-28] MEDS: HYDRALAZINE HCL 100MG TABLET PO SCH ×3 (08:47→17:00)
[2019-11-28] MEDS: ONDANSETRON HCL 4MG/2ML INJ IV PRN (09:18)
[2019-11-28 16:00] VITALS: BP 188/134
[2019-11-28 20:00] VITALS: BP 211/117
[2019-11-29] VITALS: BP 170/101
[2019-11-29 04:00] VITALS: BP 176/108
[2019-11-29] MEDS: CLONIDINE 0.1MG TABLET PO PRN (04:33)
[2019-11-29] MEDS: ACETAMINOPHEN 325MG TABLET PO PRN ×2 (04:36→10:01)
[2019-11-29] MEDS: HYDRALAZINE HCL 100MG TABLET PO SCH ×3 (09:00→16:09)
[2019-11-29] MEDS: NIFEDIPINE XL 90MG TAB PO SCH (09:00)
[2019-11-30] MEDS: ACETAMINOPHEN 325MG TABLET PO PRN ×4 (00:06→17:36)
[2019-11-30 04:00] VITALS: BP 146/59
[2019-11-30 08:00] VITALS: BP 200/120
[2019-11-30] MEDS: HYDRALAZINE HCL 100MG TABLET PO SCH ×3 (08:22→17:35)
[2019-11-30] MEDS: NIFEDIPINE XL 90MG TAB PO SCH (08:22)
[2019-11-30] MEDS: CLONIDINE 0.1MG TABLET PO PRN ×2 (11:09→21:45)
[2019-11-30 12:44] VITALS: BP 194/106
[2019-11-30 16:10] VITALS: BP 186/108
[2019-11-30 16:19] VITALS: BP 186/108
[2019-11-30 20:00] VITALS: BP 156/99
[2019-11-30] MEDS ORDERED: HYDROCODONE/ACETAMINOPHEN 5/325MG TABLET PO PRN (22:15)
[2019-12-01] VITALS (7 sets, daily range): BP systolic 140–176; BP diastolic 80–95
[2019-12-01] MEDS: HYDRALAZINE HCL 100MG TABLET PO SCH ×3 (05:08→22:38)
[2019-12-01] MEDS: ACETAMINOPHEN 325MG TABLET PO PRN ×2 (05:10→17:58)
[2019-12-01] MEDS: NIFEDIPINE XL 90MG TAB PO SCH (09:07)
[2019-12-01 13:28] LABS: MEAN CORPUSCULAR HEMOGLOBIN 29.7 pg (28.0-32.0); MEAN CORPUSCULAR VOLUME 86.7 fL (80.0-94.0); MEAN PLATELET VOLUME 6.9 fl (7.4-10.4); PLATELET 234 x1000/uL (130-400); RED BLOOD CELL COUNT 2.29 mill/uL (4.7-6.1); RED CELL DISTRIBUTION WIDTH 14.2 % (11.6-14.6)
[2019-12-01 13:33] LABS: HEMATOCRIT. 19.9 % (42.0-52.0); HEMOGLOBIN. 6.8 g/dL (14.0-18.0)
[2019-12-01 13:58] LABS: PLATELET ESTIMATE NORMAL
[2019-12-01 14:28] LABS: PHOSPHORUS 8.9 mg/dL (2.5-4.9); TOTAL IRON BINDING CAPACITY 206 ug/dL (250-450)
[2019-12-01] MEDS ORDERED: SODIUM BICARBONATE 8.4% 1 MEQ/ML 50ML SYR IV NR (15:15)
[2019-12-01] MEDS ORDERED: DEXTROSE 50% WATER 50ML SYRINGE IV NR (15:15)
[2019-12-01] MEDS ORDERED: INSULIN REGULAR (HUMULIN R) UD 100 UNITS/ML SYR IV NR (16:00)
[2019-12-01] MEDS: SODIUM POLYSTYRENE SULFONATE 15 G/60 ML BOT PO NR ×3 (16:00→18:05)
[2019-12-01] MEDS: CALCIUM ACETATE 667MG CAPSULE PO SCH (17:50)
[2019-12-01] MEDS: HYDROCODONE/ACETAMINOPHEN 5/325MG TABLET PO PRN (20:35)
[2019-12-02] VITALS: BP 172/82
[2019-12-02] MEDS: ACETAMINOPHEN 325MG TABLET PO PRN ×3 (00:35→21:57)
[2019-12-02] MEDS: HYDROCODONE/ACETAMINOPHEN 5/325MG TABLET PO PRN ×3 (02:48→18:17)
[2019-12-02] MEDS: CLONIDINE 0.1MG TABLET PO PRN ×2 (02:50→18:10)
[2019-12-02 04:00] VITALS: BP 154/86
[2019-12-02] MEDS: HYDRALAZINE HCL 100MG TABLET PO SCH ×3 (06:00→21:51)
[2019-12-02 08:00] VITALS: BP 140/76
[2019-12-02] MEDS: NIFEDIPINE XL 90MG TAB PO SCH (09:00)
[2019-12-02] MEDS: CALCIUM ACETATE 667MG CAPSULE PO SCH ×3 (09:27→18:09)
[2019-12-02 12:00] VITALS: BP 167/88
[2019-12-02 16:00] VITALS: BP 173/97
[2019-12-02] MEDS ORDERED: SODIUM POLYSTYRENE SULFONATE 15 G/60 ML BOT PO NR (18:00)
[2019-12-02 20:00] VITALS: BP 138/79
[2019-12-02] MEDS: EPOETIN ALFA 10000UNITS/ML VIAL SUBCUT SCH (21:46)
[2019-12-03] VITALS: BP 13/104
[2019-12-03 01:26] VITALS: BP 189/107
[2019-12-03 01:43] VITALS: BP 193/104
[2019-12-03] MEDS: HYDROCODONE/ACETAMINOPHEN 5/325MG TABLET PO PRN ×3 (03:46→17:16)
[2019-12-03] MEDS: HYDRALAZINE HCL 100MG TABLET PO SCH ×3 (06:00→21:07)
[2019-12-03] MEDS: CALCIUM ACETATE 667MG CAPSULE PO SCH ×3 (07:50→17:17)
[2019-12-03 08:00] VITALS: BP 184/100
[2019-12-03] MEDS: NIFEDIPINE XL 90MG TAB PO SCH (09:51)
[2019-12-03] MEDS: CLONIDINE 0.1MG TABLET PO PRN (09:51)
[2019-12-03 15:16] LABS: HEMATOCRIT. 21.5 % (42.0-52.0); HEMOGLOBIN. 7.5 g/dL (14.0-18.0); INR 1.2; MEAN CORPUSCULAR HEMOGLOBIN 30.4 pg (28.0-32.0); MEAN CORPUSCULAR VOLUME 87.3 fL (80.0-94.0); MEAN PLATELET VOLUME 7.3 fl (7.4-10.4); PLATELET 246 x1000/uL (130-400); PROTHROMBIN TIME 12.4 sec (9.6-11.0); RED BLOOD CELL COUNT 2.46 mill/uL (4.7-6.1); RED CELL DISTRIBUTION WIDTH 14.8 % (11.6-14.6)
[2019-12-03 16:00] VITALS: BP 167/82
[2019-12-03 20:00] VITALS: BP 147/81
[2019-12-03] MEDS: ACETAMINOPHEN 325MG TABLET PO PRN (21:39)
[2019-12-04 01:18] LABS: PLATELET ESTIMATE NORMAL
[2019-12-04 04:00] VITALS: BP 188/109
[2019-12-04] MEDS: HYDROCODONE/ACETAMINOPHEN 5/325MG TABLET PO PRN ×2 (05:04→21:46)
[2019-12-04] MEDS: HYDRALAZINE HCL 100MG TABLET PO SCH ×3 (05:05→21:24)
[2019-12-04 08:00] VITALS: BP 166/85
[2019-12-04] MEDS: CALCIUM ACETATE 667MG CAPSULE PO SCH ×3 (09:26→17:58)
[2019-12-04] MEDS: NIFEDIPINE XL 90MG TAB PO SCH (09:37)
[2019-12-04 12:22] VITALS: BP 178/105
[2019-12-04] MEDS: ACETAMINOPHEN 325MG TABLET PO PRN (16:40)
[2019-12-04 17:25] VITALS: BP 153/132
[2019-12-04] MEDS ORDERED: INSULIN REGULAR (HUMULIN R) 300UNITS/3ML IV PRN (18:45)
[2019-12-04] MEDS ORDERED: DEXTROSE 50% WATER 50ML SYRINGE IV PRN (18:45)
[2019-12-04 20:17] VITALS: BP 164/90
[2019-12-04] MEDS: CLONIDINE 0.1MG TABLET PO PRN (21:23)
[2019-12-05] VITALS: BP 139/76
[2019-12-05 04:35] VITALS: BP 141/70
[2019-12-05] MEDS: HYDRALAZINE HCL 100MG TABLET PO SCH ×3 (06:17→21:56)
[2019-12-05] MEDS: ACETAMINOPHEN 325MG TABLET PO PRN ×3 (06:17→21:56)
[2019-12-05 06:29] LABS: MEAN CORPUSCULAR HEMOGLOBIN 30.1 pg (28.0-32.0); MEAN CORPUSCULAR VOLUME 86.4 fL (80.0-94.0); PLATELET 238 x1000/uL (130-400); RED BLOOD CELL COUNT 2.34 mill/uL (4.7-6.1); RED CELL DISTRIBUTION WIDTH 14.5 % (11.6-14.6)
[2019-12-05 06:53] LABS: HEMATOCRIT 20.2 % (42.0-52.0)
[2019-12-05] MEDS: CALCIUM ACETATE 667MG CAPSULE PO SCH ×3 (07:50→18:20)
[2019-12-05 08:00] VITALS: BP_SYST 149; BP_SYST 159; BP_DIAS 140; BP_DIAS 89
[2019-12-05] MEDS ORDERED: LIDOCAINE HCL 1% 20ML VIAL (Pyxis) INJ ONE (08:24)
[2019-12-05] MEDS ORDERED: SODIUM BICARBONATE 4% (2.4MEQ) 5ML VIAL IV ONE (08:24)
[2019-12-05] MEDS: NIFEDIPINE XL 90MG TAB PO SCH (09:00)
[2019-12-05 12:00] VITALS: BP 159/140
[2019-12-05 18:45] VITALS: BP 172/84
[2019-12-05] MEDS: HYDROCODONE/ACETAMINOPHEN 5/325MG TABLET PO PRN (18:45)
[2019-12-05] MEDS: CLONIDINE 0.1MG TABLET PO PRN (18:49)
[2019-12-05 20:31] VITALS: BP 165/98
[2019-12-05] MEDS: EPOETIN ALFA 10000UNITS/ML VIAL SUBCUT SCH (21:58)
[2019-12-06 00:09] VITALS: BP 163/87
[2019-12-06 04:00] VITALS: BP 163/89
[2019-12-06] MEDS: HYDRALAZINE HCL 100MG TABLET PO SCH ×2 (05:58→14:00)
[2019-12-06] MEDS: ACETAMINOPHEN 325MG TABLET PO PRN ×2 (06:00→12:39)
[2019-12-06] MEDS: CALCIUM ACETATE 667MG CAPSULE PO SCH ×2 (07:50→12:50)
[2019-12-06 08:08] VITALS: BP 150/103
[2019-12-06] MEDS: NIFEDIPINE XL 90MG TAB PO SCH ×2 (09:00→09:45)
[2019-12-06 11:59] LABS: HEMOGLOBIN. 7.2 g/dL (14.0-18.0); MEAN CORPUSCULAR HEMOGLOBIN 30.3 pg (28.0-32.0); MEAN CORPUSCULAR VOLUME 86.8 fL (80.0-94.0); MEAN PLATELET VOLUME 6.9 fl (7.4-10.4); PLATELET 228 x1000/uL (130-400); RED BLOOD CELL COUNT 2.36 mill/uL (4.7-6.1); RED CELL DISTRIBUTION WIDTH 14.2 % (11.6-14.6)
[2019-12-06 12:20] LABS: HEMATOCRIT. 20.5 % (42.0-52.0)
[2019-12-06 18:26] LABS: PLATELET ESTIMATE NORMAL
== END 2019-12-06 14:31 | disposition left against medical advice (07) | DRG 470 ==
LOC: ER 18:39 → 5EST 22:44 → ENRESERV 23:34 → 6WST 11-20 09:15
PROVIDERS: ADMIT Internal Medicine; ATTEND Internal Medicine
PROC: 30233N1 Transfusion of Nonautologous Red Blood Cells into Peripheral Vein, Percutaneous Approach (ICD-10-PCS; principal; 2019-11-17)
PROC: 5A1D70Z Performance of Urinary Filtration, Intermittent, Less than 6 Hours Per Day (ICD-10-PCS; 2019-11-17)
PROC: 5A1D70Z Performance of Urinary Filtration, Intermittent, Less than 6 Hours Per Day (ICD-10-PCS; 2019-11-18)
PROC: 5A1D70Z Performance of Urinary Filtration, Intermittent, Less than 6 Hours Per Day (ICD-10-PCS; 2019-11-19)
PROC: 5A1D70Z Performance of Urinary Filtration, Intermittent, Less than 6 Hours Per Day (ICD-10-PCS; 2019-11-20)
PROC: 5A1D70Z Performance of Urinary Filtration, Intermittent, Less than 6 Hours Per Day (ICD-10-PCS; 2019-11-21)
PROC: 5A1D70Z Performance of Urinary Filtration, Intermittent, Less than 6 Hours Per Day (ICD-10-PCS; 2019-11-22)
PROC: 5A1D70Z Performance of Urinary Filtration, Intermittent, Less than 6 Hours Per Day (ICD-10-PCS; 2019-11-24)
PROC: 5A1D70Z Performance of Urinary Filtration, Intermittent, Less than 6 Hours Per Day (ICD-10-PCS; 2019-11-25)
PROC: 5A1D70Z Performance of Urinary Filtration, Intermittent, Less than 6 Hours Per Day (ICD-10-PCS; 2019-11-26)
PROC: 5A1D70Z Performance of Urinary Filtration, Intermittent, Less than 6 Hours Per Day (ICD-10-PCS; 2019-11-27)
PROC: 5A1D70Z Performance of Urinary Filtration, Intermittent, Less than 6 Hours Per Day (ICD-10-PCS; 2019-11-29)
PROC: 5A1D70Z Performance of Urinary Filtration, Intermittent, Less than 6 Hours Per Day (ICD-10-PCS; 2019-12-01)
PROC: 5A1D70Z Performance of Urinary Filtration, Intermittent, Less than 6 Hours Per Day (ICD-10-PCS; 2019-12-02)
PROC: 5A1D70Z Performance of Urinary Filtration, Intermittent, Less than 6 Hours Per Day (ICD-10-PCS; 2019-12-03)
PROC: 5A1D70Z Performance of Urinary Filtration, Intermittent, Less than 6 Hours Per Day (ICD-10-PCS; 2019-12-04)
PROC: 5A1D70Z Performance of Urinary Filtration, Intermittent, Less than 6 Hours Per Day (ICD-10-PCS; 2019-12-05)
PROC: 0W9G3ZZ Drainage of Peritoneal Cavity, Percutaneous Approach (ICD-10-PCS; 2019-12-05)
PROC: 5A1D70Z Performance of Urinary Filtration, Intermittent, Less than 6 Hours Per Day (ICD-10-PCS; 2019-12-06)
DX: I12.0 Hypertensive chronic kidney disease with stage 5 chronic kidney disease or end stage renal disease (principal); E87.5 Hyperkalemia; E83.39 Other disorders of phosphorus metabolism; N18.6 End stage renal disease; R18.8 Other ascites; E87.70 Fluid overload, unspecified; F17.200 Nicotine dependence, unspecified, uncomplicated; Z53.20 Procedure and treatment not carried out because of patient's decision for unspecified reasons; Z91.19 Patient's noncompliance with other medical treatment and regimen; Z99.2 Dependence on renal dialysis; Z79.899 Other long term (current) drug therapy; Z03.818 Encounter for observation for suspected exposure to other biological agents ruled out; D63.1 Anemia in chronic kidney disease
CPT/HCPCS: 36415; 49083; 71045; 76705; 80048; 80053; 80061; 82040; 82270; 82550; 82553; 82962; 83540; 83550; 83615; 83735; 84100; 84132; 84443; 84484; 84520; 85014; 85018; 85025; 85027; 85049; 85384; 86705; 86706; 86709; 86803; 86850; 86900; 86920; 87340; 93005; 94640; 99291; J0360; J0610; J0885; J1815; J2405; J3490; J7060; P9016; U0003-CS

== ENCOUNTER 2019-12-06 15:32 | Emergency (ER) | payer MEDICAID ==
[~2019-12-06] VITALS: Ht 170.2 cm; Wt 77.0 kg
[2019-12-06 16:00] VITALS: BP 171/96
[2019-12-06 17:08] LABS: MEAN CORPUSCULAR HEMOGLOBIN 30.2 pg (28.0-32.0); MEAN PLATELET VOLUME 7.3 fl (7.4-10.4); PLATELET 228 x1000/uL (130-400); RED BLOOD CELL COUNT 2.27 mill/uL (4.7-6.1); RED CELL DISTRIBUTION WIDTH 14.3 % (11.6-14.6)
[2019-12-06 17:11] LABS: HEMATOCRIT. 19.7 % (42.0-52.0); HEMOGLOBIN. 6.9 g/dL (14.0-18.0)
[2019-12-06 17:13] LABS: CHLORIDE 96 mEq/L (98-107)
[2019-12-06 17:46] LABS: PLATELET ESTIMATE NORMAL
[2019-12-06] MEDS ORDERED: ACETAMINOPHEN 500MG TABLET PO ONE (18:00)
[2019-12-06] MEDS ORDERED: INSULIN REGULAR (HUMULIN R) 300UNITS/3ML IV NR (18:15)
[2019-12-06] MEDS ORDERED: CALCIUM CHLORIDE 1GM/10ML SYR IV NR (18:15)
[2019-12-06] MEDS ORDERED: SODIUM BICARBONATE 8.4% 1 MEQ/ML 50ML SYR IV NR (18:15)
[2019-12-06] MEDS ORDERED: DEXTROSE 50% WATER 50ML SYRINGE IV NR (18:15)
[2019-12-06] MEDS ORDERED: SODIUM BICARBONATE 8.4% 1 MEQ/ML 50ML SYR IV ONE (23:54)
== END 2019-12-06 19:34 | disposition left against medical advice (07) ==
LOC: ER 15:32 → CANBEDREQ 12-07 06:47
DX: E87.70 Fluid overload, unspecified (principal); E87.5 Hyperkalemia; I12.0 Hypertensive chronic kidney disease with stage 5 chronic kidney disease or end stage renal disease; E11.22 Type 2 diabetes mellitus with diabetic chronic kidney disease; N18.6 End stage renal disease; R06.02 Shortness of breath; M79.89 Other specified soft tissue disorders; F17.290 Nicotine dependence, other tobacco product, uncomplicated; Z99.2 Dependence on renal dialysis; Z98.890 Other specified postprocedural states; Z79.899 Other long term (current) drug therapy
CPT/HCPCS: 36415; 71045; 80053; 83880; 84484; 85025; 93005; 94640; 99285; 99406; J3490; Z7610

== ENCOUNTER 2019-12-06 19:30 | Inpatient (IN) | payer MEDICAID ==
[~2019-12-06] VITALS: Ht 368.3 cm; Wt 90.7 kg
[2019-12-06] MEDS ORDERED: SODIUM BICARBONATE 8.4% 1 MEQ/ML 50ML SYR IV ONE (22:30)
[2019-12-06] MEDS ORDERED: NITROGLYCERIN 0.4MG TABLET SL SL PRN (22:30)
[2019-12-06] MEDS ORDERED: ASPIRIN 81MG TABLET PO ONE (22:30)
[2019-12-06] MEDS ORDERED: CALCIUM CHLORIDE 1GM/10ML SYR IV ONE (22:30)
[2019-12-06 23:22] LABS: HEMATOCRIT. 22.9 % (42.0-52.0); HEMOGLOBIN. 7.7 g/dL (14.0-18.0); MEAN CORPUSCULAR HEMOGLOBIN 29.4 pg (28.0-32.0); MEAN CORPUSCULAR VOLUME 87.1 fL (80.0-94.0); MEAN PLATELET VOLUME 6.9 fl (7.4-10.4); PLATELET 279 x1000/uL (130-400); RED BLOOD CELL COUNT 2.63 mill/uL (4.7-6.1); RED CELL DISTRIBUTION WIDTH 14.7 % (11.6-14.6)
[2019-12-06 23:29] LABS: CHLORIDE 96 mEq/L (98-107)
[2019-12-06] MEDS ORDERED: FUROSEMIDE 100MG/10ML VIAL IV STA (23:56)
[2019-12-07] MEDS ORDERED: INSULIN REGULAR (HUMULIN R) 300UNITS/3ML IV ONE
[2019-12-07] MEDS ORDERED: ASPIRIN 325MG TABLET PO ONE
[2019-12-07] MEDS ORDERED: DEXTROSE 50% WATER 50ML SYRINGE IV ONE
[2019-12-07] MEDS ORDERED: SODIUM BICARBONATE 8.4% 1 MEQ/ML 50ML SYR IV ONE
[2019-12-07] MEDS ORDERED: CALCIUM CHLORIDE 1GM/10ML SYR IV ONE
[2019-12-07] MEDS ORDERED: ALBUTEROL (0.083%) 2.5MG/3ML NEB HHN ONE
[2019-12-07 01:05] LABS: PLATELET ESTIMATE NORMAL
[2019-12-07] MEDS ORDERED: ALBUTEROL (0.5%) 2.5MG/0.5ML NEB HHN ONE (01:52)
[2019-12-07] MEDS ORDERED: ONDANSETRON HCL 4MG/2ML INJ IV PRN (08:45)
[2019-12-07] MEDS ORDERED: LORAZEPAM 0.5MG TABLET PO PRN (08:45)
[2019-12-07] MEDS ORDERED: DOCUSATE SODIUM 100MG CAPSULE PO PRN (08:45)
[2019-12-07] MEDS ORDERED: GUAIFENESIN 200MG/10ML SUGAR FREE UDC PO PRN (08:45)
[2019-12-07] MEDS ORDERED: IPRATROPIUM/ALBUTEROL 0.5-3(2.5)MG/3ML NEB HHN PRN (08:45)
[2019-12-07 10:30] VITALS: BP 155/86
[2019-12-07] MEDS: HYDROCODONE/ACETAMINOPHEN 5/325MG TABLET PO PRN (11:00)
[2019-12-07] MEDS ORDERED: NIFEDIPINE XL 30MG TAB PO NR (19:00)
[2019-12-07 20:00] VITALS: BP 170/90
[2019-12-07] MEDS: ACETAMINOPHEN 325MG TABLET PO PRN (20:06)
[2019-12-08 04:00] VITALS: BP 162/114
[2019-12-08] MEDS: ACETAMINOPHEN 325MG TABLET PO PRN ×2 (04:10→11:51)
[2019-12-08] MEDS: CLONIDINE 0.1MG TABLET PO PRN ×2 (05:37→11:51)
[2019-12-08 08:00] VITALS: BP 163/85
[2019-12-08] MEDS: NIFEDIPINE XL 90MG TAB PO SCH ×2 (08:30→09:00)
[2019-12-08 12:00] VITALS: BP 164/97
[2019-12-08 20:00] VITALS: BP 138/83
[2019-12-09 06:49] LABS: MEAN CORPUSCULAR HEMOGLOBIN 29.7 pg (28.0-32.0); MEAN CORPUSCULAR VOLUME 86.6 fL (80.0-94.0); MEAN PLATELET VOLUME 6.9 fl (7.4-10.4); PLATELET 270 x1000/uL (130-400); RED CELL DISTRIBUTION WIDTH 14.6 % (11.6-14.6)
[2019-12-09 07:00] LABS: HEMOGLOBIN. 6.5 g/dL (14.0-18.0)
[2019-12-09] MEDS ORDERED: DEXTROSE 50% WATER 50ML SYRINGE IV NR (10:33)
[2019-12-09] MEDS ORDERED: SODIUM BICARBONATE 8.4% 1 MEQ/ML 50ML SYR IV NR (10:33)
[2019-12-09] MEDS: ACETAMINOPHEN 325MG TABLET PO PRN ×2 (11:55→13:46)
[2019-12-09] MEDS: NIFEDIPINE XL 90MG TAB PO SCH (11:58)
[2019-12-09] MEDS ORDERED: INSULIN REGULAR (HUMULIN R) UD 100 UNITS/ML SYR IV NR (12:00)
[2019-12-09] MEDS ORDERED: SODIUM POLYSTYRENE SULFONATE 15 G/60 ML BOT PO NR (12:00)
[2019-12-09 12:41] LABS: HEPATITIS B SURFACE AB 24.4 mIU/mL
[2019-12-09 12:52] LABS: HEPATITIS B SURFACE ANTIGEN NEGATIVE
[2019-12-09 13:06] LABS: PLATELET ESTIMATE NORMAL
[2019-12-09 13:22] LABS: HEPATITIS A AB IGM NEGATIVE (NEGATIVE)
[2019-12-09] MEDS: HYDROCODONE/ACETAMINOPHEN 5/325MG TABLET PO PRN ×2 (13:45→20:08)
[2019-12-09 16:02] VITALS: BP 161/77
[2019-12-09 20:00] VITALS: BP 158/89
[2019-12-10] VITALS: BP 154/88
[2019-12-10] MEDS: ACETAMINOPHEN 325MG TABLET PO PRN ×2 (00:44→09:46)
[2019-12-10 04:00] VITALS: BP 171/83
[2019-12-10] MEDS: HYDROCODONE/ACETAMINOPHEN 5/325MG TABLET PO PRN (04:44)
[2019-12-10] MEDS: CLONIDINE 0.1MG TABLET PO PRN (04:44)
[2019-12-10 08:00] VITALS: BP 115/111
[2019-12-10] MEDS: NIFEDIPINE XL 90MG TAB PO SCH (08:45)
== END 2019-12-10 15:13 | disposition left against medical advice (07) | DRG 425 ==
LOC: ER 19:30 → 6WST 12-07 00:44 → ENRESERV 12-07 09:55
PROVIDERS: ADMIT Internal Medicine; ATTEND Internal Medicine
PROC: 5A1D70Z Performance of Urinary Filtration, Intermittent, Less than 6 Hours Per Day (ICD-10-PCS; principal; 2019-12-07)
PROC: 5A1D70Z Performance of Urinary Filtration, Intermittent, Less than 6 Hours Per Day (ICD-10-PCS; 2019-12-09)
PROC: 5A1D70Z Performance of Urinary Filtration, Intermittent, Less than 6 Hours Per Day (ICD-10-PCS; 2019-12-10)
DX: E87.5 Hyperkalemia (principal); N18.6 End stage renal disease; I13.2 Hypertensive heart and chronic kidney disease with heart failure and with stage 5 chronic kidney disease, or end stage renal disease; F17.200 Nicotine dependence, unspecified, uncomplicated; E11.22 Type 2 diabetes mellitus with diabetic chronic kidney disease; Z53.29 Procedure and treatment not carried out because of patient's decision for other reasons; R18.8 Other ascites; D64.9 Anemia, unspecified; I50.9 Heart failure, unspecified; Z99.2 Dependence on renal dialysis; Z91.15 Patient's noncompliance with renal dialysis; Z79.899 Other long term (current) drug therapy; Z82.49 Family history of ischemic heart disease and other diseases of the circulatory system; Z91.19 Patient's noncompliance with other medical treatment and regimen
CPT/HCPCS: 36415; 71045; 80048; 80053; 83880; 84484; 85025; 86705; 86706; 86709; 86803; 86850; 86900; 86920; 87340; 93005; 99285; J1815; J3490